=== PATIENT | female | born 1965 | race Caucasian/White ===

== ENCOUNTER 2017-08-11 10:45 | Emergency (ER) | payer BC ==
[2017-08-11 11:03] VITALS: BP 159/104
--- NOTE | 2017-08-11 11:37 | RAD ---
INDICATION: Head injury. COMPARISON: There are no prior studies available for comparison. TECHNIQUE: Contiguous axial sections of the brain were obtained from the skull base to the vertex without contrast. FINDINGS: The ventricles, cisterns and sulci are within normal limits. No significant focal abnormality or mass effect is seen. There is no evidence for hemorrhage. There is focal soft tissue swelling present along the lateral aspect of the left orbit and zygoma. No fracture is seen. The visualized portion of the paranasal sinuses and mastoid air cells appear clear. IMPRESSION: NO EVIDENCE FOR ACUTE INTRACRANIAL ABNORMALITY.
--- NOTE | 2017-08-11 11:38 | RAD ---
Indication: Fall, left orbit and facial injury. CT of the facial bones was obtained in the axial plane. Sagittal and coronal reconstructed images were obtained. There is soft tissue swelling at the level of the left zygoma at the zygomatic arch. There is soft tissue density measuring up to 15 x 9 mm consistent with a hematoma. Adjacent infiltration of fat is noted likely representing some hemorrhage. This extends to the superior lateral orbit region. No underlying fracture is noted. Zygomatic arch is unremarkable. The mandible is intact without evidence of fracture. Skull base is unremarkable. Paranasal sinuses are unremarkable. The visualized cervical spine is otherwise normal. The pterygoid plates and hard palate are otherwise unremarkable. No intraconal masses are noted. The extraocular muscles are intact. The globe appears intact. The orbits demonstrates no fracture. The paranasal sinuses are otherwise unremarkable. IMPRESSION: There is soft tissue swelling at the anterior left zygomatic arch with a small hematoma. Induration of fat is noted consistent with adjacent edema and hemorrhage. No underlying fracture is noted.
--- NOTE | 2017-08-11 11:40 | RAD ---
INDICATION: Fell and hit LEFT side of face. COMPARISON: No relevant prior exams available on the [facility] [place] [facility] for comparison. TECHNIQUE: Multidetector CT images foramen magnum to lung apices without contrast. Multiplanar reformation. REPORT: Normal vertebral alignment accounting for exam positioning without spondylolisthesis or subluxation at any level. Negative for cervical vertebral body or posterior element fracture. Negative for paravertebral hematoma. 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 Facet joint osteoarthritis is severe most marked from C2-C3 through C4-C5 on the RIGHT. At C3-C4 uncinate process spurring and facet joint osteoarthritis results in mild LEFT foraminal stenosis. At C5-C6 dorsal disc osteophyte complex results in only slight impression on the ventral margin of the thecal sac. At C6-C7 dorsal spondylitic ridging disc complex results in only slight impression on the ventral margin of the thecal sac. Uncinate process spurring results in moderate LEFT foraminal stenosis. IMPRESSION: No CT evidence for traumatic cervical spine injury.
--- NOTE | 2017-08-11 12:53 | UC ---
Minor Trauma HPI - HPI Summary HPI Summary: Patient is a 52-year-old female presenting to the with chief complaint of left sided facial injury after tripping and falling right outside of work this morning approximately 1 hour prior to arrival. There is a significant amount of swelling and bruising just inferior to the eye over the orbit and to the cheekbone. There is an abrasion across the left cheek. She denies any visual changes or disturbances. Denies any headache. Patient denies loss of consciousness. However, upon arriving to work, coworkers states she was somewhat confused about what day it was. On arrival she appears to be A&O 3. - History of Current Complaint Hx Obtained From: Patient ?: No Onset/Duration: Sudden Onset Onset Of Pain: Immediate Severity Initially: Mild Severity Currently: Mild Pain Intensity: 6 Pain Scale Used: 0-10 Numeric Mechanism Of Injury: Blunt Trauma Aggravating Factor(s): Nothing Alleviating Factor(s): Compression - Risk Factors Penetrating Injury Risk Factors: Negative Compartment Syndrome Risk Factors: Pain <Idalia Sheppard - Last Filed: 08/11/17 12:48> <Lani Jimenez - Last Filed: 08/11/17 14:21> - History of Current Complaint Chief Complaint: UCHeadInjury Stated Complaint: FELL HEAD INJURY Time Seen by Provider: 08/11/17 11:00 - Allergies/Home Medications Allergies/Adverse Reactions: Allergies Allergy/AdvReac Type Severity Reaction Status Date / Time No Known Allergies Allergy Verified 08/11/17 11:03 Home Medications: Home Medications Escitalopram Oxalate [Lexapro 10 mg] 10 mg PO DAILY 08/11/17 [History Confirmed 08/11/17] PMH/Surg Hx/FS Hx/Imm Hx Previously Healthy: Yes - Surgical History Surgical History: Yes Surgery Procedure, Year, and Place: TUBAL LIGATION - Family History Known Family History: Positive: Unknown - Social History Occupation: Unemployed Lives: With Family Alcohol Use: Occasionally Substance Use Type: None Smoking Status (MU): Light Every Day Tobacco Smoker <Idalia Sheppard - Last Filed: 08/11/17 12:48> Review of Systems Constitutional: Negative, Other - Signs of trauma Skin: Bruising, Other - Abrasion to the left cheek ENT: Negative Respiratory: Negative Cardiovascular: Negative Motor: Negative Neurovascular: Negative Musculoskeletal: Negative Psychological: Negative Is Patient Immunocompromised?: No All Other Systems Reviewed And Are Negative: Yes <Idalia Sheppard - Last Filed: 08/11/17 12:48> Physical Exam Triage Information Reviewed: Yes Appearance: Signs of Trauma Vital Signs: Initial Vital Signs Temp 98.4 F 08/11/17 10:58 Pulse 66 08/11/17 10:58 Resp 18 08/11/17 10:58 BP 159/104 08/11/17 10:58 Pulse Ox 100 08/11/17 10:58 Vital Signs Reviewed: Yes Eye Exam: Normal Eyes: Positive: Conjunctiva Clear, Other: - No eye entrapment ENT: Positive: Uvula midline, Other - No hemotympanum Dental Exam: Normal Dental: Positive: Other: - No dental tenderness or bleeding Neck exam: Normal Neck: Positive: Supple, No Lymphadenopathy Respiratory Exam: Normal Respiratory: Positive: Chest non-tender, Lungs clear Cardiovascular: Positive: RRR Musculoskeletal Exam: Normal Musculoskeletal: Positive: Strength Intact Neurological Exam: Normal Neurological: Positive: Alert Psychological: Positive: Normal Response To Family, Age Appropriate Behavior Skin: Positive: Other - Abrasion to the left cheek <Idalia Sheppard - Last Filed: 08/11/17 12:48> Vital Signs: Initial Vital Signs Temp 98.4 F 08/11/17 10:58 Pulse 66 08/11/17 10:58 Resp 18 08/11/17 10:58 BP 159/104 08/11/17 10:58 Pulse Ox 100 08/11/17 10:58 <Lani Jimenez - Last Filed: 08/11/17 14:21> Minor Trauma Course/Dx - Course Course Of Treatment: During the course of treatment, the patient is evaluated for left-sided facial injury. Cervical spine, maxillofacial and brain CT obtained. All within normal limits except for maxillofacial shows: IMPRESSION: There is soft tissue swelling at the anterior left zygomatic arch with a small. hematoma. Induration of fat is noted consistent with adjacent edema and hemorrhage. No. underlying fracture is noted. There appears to be no eye entrapment. No bleeding from the mouth. No hemotympanum visualized. There is no Hanson sign. Pain to the ipsilateral cheek with swelling. Note given for work. Encouraged ibuprofen 600 mg. - Differential Dx/Diagnosis Differential Diagnosis/HQI/PQRI: Contusion(s), Hematoma(s) Provider Diagnoses: Facial hematoma <Idalia Sheppard - Last Filed: 08/11/17 12:48> Discharge - Sign-Out/Discharge Documenting (check all that apply): Discharge/Admit/Transfer - Billing Disposition and Condition Condition: STABLE Disposition: HOME <Idalia Sheppard Last Filed: 08/11/17 12:48> - Billing Disposition and Condition Condition: STABLE Disposition: HOME <Lani Jimenez - Last Filed: 08/11/17 14:21> - Discharge Plan Condition: Stable Disposition: HOME Patient Education Materials: Contusion in Adults (ED) Forms: *Work Release Referrals: Kaylen Bui MD [Primary Care Provider] - Additional Instructions: Ibuprofen 600mg three times daily Ice to the area Images Head: 1 - Bruising and hematoma <Idalia Sheppard - Last Filed: 08/11/17 12:48> Attestation Statement User Type: Provider - I was available for consult. This patient was seen by the [facility]. The patient was not presented to, seen by, or examined by me. -Byron <Lani Jimenez - Last Filed: 08/11/17 14:21>
== END 2017-08-11 12:10 | disposition home or self-care (01) ==
LOC: UCEAST 10:45
DX: S00.83XA Contusion of other part of head, initial encounter (principal); S00.81XA Abrasion of other part of head, initial encounter; W01.0XXA Fall on same level from slipping, tripping and stumbling without subsequent striking against object, initial encounter; Y93.9 Activity, unspecified; Y92.9 Unspecified place or not applicable; Y99.0 Civilian activity done for income or pay; F17.200 Nicotine dependence, unspecified, uncomplicated
CPT/HCPCS: 70450; 70486; 72125; 99211; G0463